=== PATIENT | male | born 1950 | race Caucasian/White ===

== ENCOUNTER → 2022-12-12 | Outpatient (CLI) | payer MEDICARE ==
[2022-12-12 12:45] LABS: POTASSIUM 4.7 mmol/L (3.5-5.1)
== END | disposition home or self-care (01) ==
LOC: LAB 10:30
PROVIDERS: ATTEND Internal Medicine Cardiovascular Disease
DX: I10 Essential (primary) hypertension (principal); E78.5 Hyperlipidemia, unspecified
CPT/HCPCS: 36415; 80048; 80061

== ENCOUNTER → 2023-10-08 | Outpatient (CLI) | payer MEDICARE ==
[2023-10-08 12:03] LABS: BASOPHILS # (AUTO) 0.06 K/uL (0.00-0.20); BASOPHILS % (AUTO) 0.7 % (0.0-5.0); EOSINOPHILS % (AUTO) 1.1 % (0.0-8.0); HEMATOCRIT 47.7 % (42-54); IMMATURE GRANULOCYTE ABSOLUTE 0.03 K/uL (0-1); LYMPHOCYTES # (AUTO) 2.3 K/uL (1.0-4.8); LYMPHOCYTES % (AUTO) 25.3 % (21.0-51.0); MEAN CORPUSCULAR HEMOGLOBIN 32.6 pg (27.0-33.0); MEAN CORPUSCULAR HGB CONC 34.2 g/dL (32.0-36.0); MEAN CORPUSCULAR VOLUME 95.4 fL (79-99); MONOCYTES # (AUTO) 0.9 K/uL (0.1-1.0); MONOCYTES % (AUTO) 9.7 % (3.0-13.0); NEUTROPHILS # (AUTO) 5.6 K/uL (1.8-7.7); NEUTROPHILS % (AUTO) 62.9 % (40.0-77.0); PLATELET COUNT (AUTO) 274 K/uL (130-400); WHITE BLOOD COUNT (AUTO) 8.9 K/uL (4.8-10.8)
[2023-10-08 12:32] LABS: CREATININE 0.9 mg/dL (0.5-1.5); POTASSIUM 4.4 mmol/L (3.5-5.1)
== END | disposition home or self-care (01) ==
LOC: LAB 11:00
PROVIDERS: ATTEND Internal Medicine Cardiovascular Disease
DX: I10 Essential (primary) hypertension (principal); E78.5 Hyperlipidemia, unspecified
CPT/HCPCS: 36415; 80048; 80061; 85025

== ENCOUNTER 2025-07-19 12:46 | Emergency (ER) | payer MEDICARE ==
[~2025-07-19] VITALS: Ht 170.2 cm; Wt 95.3 kg
[~2025-07-19 12:46] MED LIST: ASPI-1005 PO; ATOR40TA71 PO; LISI5TAB21 PO; TURM5000 MC
--- NOTE | 2025-07-19 13:19 | ERN ---
ED Note History of Present Illness Stated Complaint: BLEEDING TO NEPHROSTOMY DRESSING Chief Complaint: Other Problems Time Seen by MD: 12:53 Time Seen by Midlevel: 12:55 Dictation: 74-year-old male coming in for evaluation of the left nephrostomy tube. Patient stating it was placed due to a kidney stone. States there has been no change in urine output however states it is dressing is dirty and wishes. TBI change. Denies any other complaints at this time. Allergies: Coded Allergies: No Known Drug Allergies (Unverified Allergy, Unknown, 07/09/25) Home Meds Reported Medications Turmeric (Turmeric Root) 100 % Powder, 5000 GM MC AM, APPL 07/09/25 Aspirin (ASPIRIN 81MG CHEW TAB) 81 Mg Tab.chew, 1 TAB PO DAILY for 30 Days, #30 TAB 0 Refills 07/09/25 Atorvastatin Calcium (Atorvastatin Calcium) 40 Mg Tablet, 1 TAB PO DAILY for 30 Days, #30 TAB 0 Refills 07/09/25 Lisinopril (Lisinopril) 5 Mg Tablet, 1 TAB PO DAILY for 30 Days, #30 TAB 0 Refills 07/09/25 Past Medical History Past Medical History: Diabetes-Type II, High Cholesterol, Hypertension, Kidney Stone, CT, Other Additional Past Medical Hx: PROSTATE CANCER Surgical History: CABG, Other Surgical History Other: CARDIAC STENTS Family History: Negative Review of System Dictation Constitutional: Negative for fever,chills, and weight loss Eyes: Negative for injury, pain,redness, and discharge ENT: Negative for injury,pain or swelling Cardiovascular: Negative for chest pain, palpitations, and edema Respiratory: Negative for shortness of breath, cough, and wheezing, Abdomen/GI: Negative for abdominal pain, nausea, vomiting, diarrhea, and constipation Back: Negative for injury and pain : Negative for injury, bleeding and discharge MS/Extremity: Negative for injury and deformity Skin: Negative for rash, and discoloration Neuro: Negative for headache, weakness, numbness, tingling, and seizure Psych: Negative for suicide ideation, homicidal ideation, and hallucinations Review of Systems: was completed Initial Vital Sign VS Vital Signs Date Time Temp Pulse Resp B/P (MAP) Pulse Ox O2 Delivery O2 Flow Rate FiO2 07/19/25 12:47 99.0 70 20 158/87 97 Room Air 07/19/25 13:45 0 21 Physical Exam Dictation General: awake, alert, NAD Head/Face: Normocephalic, atraumatic Eyes: PERRL, EOMI, vision at baseline ENT: oral cavity clear, TMs clear, no signs of infection Neck: Trachea midline, supple, no nuchal rigidity Cardiovascular: RRR, normal S1/S2, No MRGs, no JVD Respiratory: CTAB, no respiratory distress, No rales or wheezes Abdomen: Soft, non-tender, non-distended, normal bowel sounds, no guarding or rebound. Skin: Warm, dry, normal turgor, no rash MS/Extremity: Pulses equal, no cyanosis, neurovascular intact, FROM Neuro: COAx4, GCS 15, strength 5/5, CN 2-12 intact, normal cerebellar exam, normal gait, Psych: Normal behavior, mood, and affect normal Left nephrostomy tube in place draining yellow urine about 300 cc. Dressing however does look dairy, there is blood staining on it along with some hair inside the Tegaderm. Dressing will be changed to the in the emergency room prior to discharge. ED Course ED Course Vital Signs Date Time Temp Pulse Resp B/P (MAP) Pulse Ox O2 Delivery O2 Flow Rate FiO2 07/19/25 13:45 98.2 65 16 155/85 98 Room Air* 0 21 07/19/25 12:47 99.0 70 20 158/87 97 Room Air Medical Decision Making MDM MDM:74-year-old male coming in for evaluation of the left nephrostomy tube. Patient stating it was placed due to a kidney stone. States there has been no change in urine output however states it is dressing is dirty and wishes with a dressing to be changed. Denies any fever, nausea and vomiting, back pain, chest pain or shortness a breath. Differential diagnosis: Dressing change, nephrostomy tube dislodgement, did not personally in the do occlusion Rationale: Tests considered and ordered secondary to shared decision making include: Previous outside records reviewed: Old ER visits. Risk of complication and/or morbidity or mortality of patient management: None Medications-Per medication reconciliation Need for hospitalization: Patient does not meet criteria for hospitalization. Need for emergency major/minor surgery: No There are no social concerns with this patient. Prescription drug management Prescriptions will include symptomatic care Patient's prior external medical records from other ER visits were reviewed by me as indicated. Prior testing and results from previous visits were reviewed. Prior tests were taken into account with medical decision making and resource utilization, independent historian/historians were used to obtain complete medical history. I independently interpreted the test that were performed, results were reviewed by me and considered findings on radiology if ordered. Medical management and examination interpretation discussions were had by me with other qualified healthcare professionals as indicated for the patient's care. DX & DISP Disposition: Discharge Departure Impression: Primary Impression: H/O insertion of nephrostomy tube Condition: Stable Additional Instructions: Keep your nephrostomy tube dressing intact. Your nephrostomy tube dressing becomes soiled remove the Tegaderm and gauze cleaned orally avoid touching or breathing over the site heavily, dry it out then place the gauze around the insertion site with a Tegaderm over the gauze. If you notice any decrease in urine output, back pain, fever, nausea vomiting please return back to the emergency room. Referrals: ENEDINA STORM MD (PCP) Time of Disposition: 13:18 I have reviewed the case, and I agree with, Diagnosis and Plan MAISHA TOLENTINO [employer]PER[employer] Jul 19, 2025 13:19
[2025-07-19 13:45] VITALS: BP 155/85; PULSE 65; RESP 16; TEMP 98.3; O2SAT 98
--- NOTE | 2025-07-19 13:58 | NUR ---
DRESSING CHANGE COMPLETED PER PA INSTRUCTION
== END 2025-07-19 14:07 | disposition home or self-care (01) ==
LOC: EDH 12:46
DX: N99.520 Hemorrhage of incontinent external stoma of urinary tract (principal); E11.9 Type 2 diabetes mellitus without complications; E78.00 Pure hypercholesterolemia, unspecified; I10 Essential (primary) hypertension; I25.2 Old myocardial infarction; Z79.82 Long term (current) use of aspirin; Z79.899 Other long term (current) drug therapy; Z95.1 Presence of aortocoronary bypass graft; Z95.5 Presence of coronary angioplasty implant and graft
CPT/HCPCS: 99282

== ENCOUNTER → 2025-07-29 | Outpatient (CLI) | payer MEDICARE ==
--- NOTE | 2025-07-29 10:59 | HMCIMG ---
ABD 1VW REASON: CALCULUS OF KIDNEY FINDINGS: Single image of the abdomen was obtained. Bowel gas pattern is normal. There is fecal stasis suggesting of constipation. There is a left-sided nephrostomy catheter in place. Bones and soft tissues appear unremarkable. There are no abnormal calcifications. There is no evidence of foreign body. There is osteoarthritic changes of the lumbar spine. There are multiple brachytherapy sticks seen in the prostate bed. There is atherosclerotic changes of both iliac vessels with calcified plaque. IMPRESSION: 1. Nonspecific gas pattern with mild fecal stasis 2. Left-sided nephrostomy tube in place 3. Multiple brachytherapy sticks seen in the prostate bed.
--- NOTE | 2025-07-29 12:09 | HMCIMG ---
Exam Type: abdomen supine tomograms Tomogram planes done at 9, 10, 11, 12, 13, 14, and 15 cm. Clinical Information: CALCULUS OF KIDNEY Comparison: None. Findings: There are no radiopacities to suggest calculous disease. The limited visualization of the rest of the abdomen structures is unremarkable. There is a left-sided nephrostomy tube in place. IMPRESSION: Normal tomogram exam. No calculi identified.
== END | disposition home or self-care (01) ==
LOC: RAH 09:02
PROVIDERS: ATTEND Urology
DX: N20.0 Calculus of kidney (principal); K59.89 Other specified functional intestinal disorders; I70.8 Atherosclerosis of other arteries; M47.816 Spondylosis without myelopathy or radiculopathy, lumbar region
CPT/HCPCS: 74018; 76100

== ENCOUNTER → 2025-08-03 | Outpatient (CLI) | payer MEDICARE ==
--- NOTE | 2025-08-03 16:22 | HMCIMG ---
EXAM: CT Abdomen and Pelvis Without IV contrast CLINICAL HISTORY: Calculus of kidney TECHNIQUE: Axial computed tomography images of the abdomen and pelvis without intravenous contrast. CONTRAST: No IV contrast. COMPARISON: Study dated 07/09. FINDINGS: LUNG BASES: Mild chronic peripheral interstitial thickening and atelectatic opacities in the included bilateral lungs. Partially visualized sternotomy sutures. LIVER: Unremarkable. GALLBLADDER AND BILE DUCTS: The gallbladder appears within normal limits. No radioopaque gallstones are seen. No biliary ductal dilatation is evident. PANCREAS: Unremarkable. SPLEEN: Unremarkable. ADRENAL GLANDS: Unremarkable. KIDNEYS, URETERS, AND BLADDER: Percutaneous nephrostomy catheter in the left interpolar calyx. 6.5 mm calculus in the left distal ureter with mild left-sided hydroureteronephrosis. No right renal or ureteral stones. No right hydronephrosis. Thick-walled urinary bladder with adjacent stranding, consistent with cystitis. STOMACH AND BOWEL: Small hiatus hernia. Unremarkable appearance of the stomach and bowel. No evidence of bowel obstruction. No evidence suggesting enteritis or colitis. Small, uncomplicated fat-containing inguinal hernias bilaterally. The appendix is normal. PERITONEUM: No free fluid. No free air. LYMPH NODES: No lymphadenopathy is evident. REPRODUCTIVE: Hyperdense metallic beads in the prostate. VASCULATURE: Calcific atherosclerotic disease in the abdominal aorta and its branches. No evidence of abdominal aortic aneurysm. BONES: Degenerative changes in the visualized spine in the form of marginal osteophytes, vacuum phenomenon, reduced disc spaces, and degenerative discs at multiple lumbar levels. No aggressive appearing osseous lesion. No acute osseous pathology is evident. IMPRESSION: 1. 6.5 mm calculus in the left distal ureter with mild left-sided hydroureteronephrosis. 2. Percutaneous nephrostomy catheter in the left interpolar calyx. 3. No right renal or ureteral stones. No right hydronephrosis. 4. Thick-walled urinary bladder with adjacent stranding, consistent with cystitis. 5. No bowel obstruction or inflammation. Normal appendix. /Dola
== END | disposition home or self-care (01) ==
LOC: RAH 12:14
PROVIDERS: ATTEND Urology
DX: N13.2 Hydronephrosis with renal and ureteral calculous obstruction (principal); K40.20 Bilateral inguinal hernia, without obstruction or gangrene, not specified as recurrent; J98.11 Atelectasis; I70.0 Atherosclerosis of aorta; M47.817 Spondylosis without myelopathy or radiculopathy, lumbosacral region
CPT/HCPCS: 74176